=== PATIENT | male | born 1940 | race Caucasian/White ===

== ENCOUNTER 2016-06-06 10:07 | Inpatient (IN) | payer MEDICARE, MEDICAID ==
[~2016-06-06] VITALS: Ht 167.6 cm; Wt 61.7 kg
[~2016-06-06 10:07] MED LIST: BENA40TA3 PO; DOCU250C69 PO; NEPVIT PO; SEVE800T8 PO
[2016-06-06] MEDS ORDERED: NITROGLYCERIN 0.4MG TABLET SL SL PRN (10:30)
[2016-06-06] MEDS ORDERED: ASPIRIN 81MG TABLET PO ONE (10:30)
[2016-06-06 10:34] LABS: BASOPHILS % 1.6 % (0.0-2.0); EOSINOPHILS % 11.4 % (0.0-5.0); HEMATOCRIT. 32.6 % (42.0-52.0); HEMOGLOBIN. 10.9 g/dL (14.0-18.0); LYMPHOCYTES % 25.2 % (20.0-50.0); MEAN CORPUSCULAR HEMOGLOBIN 31.3 pg (28.0-32.0); MEAN CORPUSCULAR HGB CONC 33.4 g/dL (31.0-37.0); MEAN CORPUSCULAR VOLUME 93.7 fL (80.0-94.0); MEAN PLATELET VOLUME 8.3 fl (7.4-10.4); MONOCYTES % 10.7 % (2.0-8.0); NEUTROPHILS % 51.1 % (40.0-76.0); PLATELET 203 x1000/uL (130-400); RED BLOOD CELL COUNT 3.48 mill/uL (4.7-6.1); RED CELL DISTRIBUTION WIDTH 15.1 % (11.6-14.6); WHITE BLOOD COUNT 7.1 x1000/uL (4.5-11.0)
[2016-06-06 10:42] LABS: INR 1.1; PROTHROMBIN TIME 11.5 sec
[2016-06-06 10:49] LABS: ALANINE AMINOTRANSFERASE 28 IU/L (13-61); ALBUMIN 3.6 g/dL (3.4-5.0); ANION GAP 17; CALCIUM 8.5 mg/dL (8.5-10.1); CARBON DIOXIDE 30 mEq/L (21-32); CHLORIDE 97 mEq/L (98-107); INDEX HEMOLYSI 1 (1-3); INDEX ICTERIC 1 (1-4); INDEX LIPEMIC 1 (1-3); UREA NITROGEN BLOOD 41 mg/dL (7-21); eGFR 7 mL/min (>60)
[2016-06-06 10:53] LABS: TROPONIN I 0.11 ng/mL (0.00-0.04)
[2016-06-06 11:04] LABS: NT PRO B-TYPE NATRIURETIC PEP 56291 pg/mL (5-125)
[2016-06-06] MEDS ORDERED: ACETAMINOPHEN 325MG TABLET PO ONE ×2 (13:00)
[2016-06-06 15:03] VITALS: BP 133/62
[2016-06-06 15:06] VITALS: BP 133/62
[2016-06-06] MEDS ORDERED: CLONIDINE 0.2MG TABLET PO PRN (15:30)
[2016-06-06] MEDS ORDERED: HYDRALAZINE 20MG/ML VIAL IV PRN (15:30)
[2016-06-06] MEDS ORDERED: BENAZEPRIL 20MG TABLET PO SCH (15:30)
[2016-06-06] MEDS ORDERED: CLONIDINE 0.1MG TABLET PO PRN (15:30)
[2016-06-06] MEDS ORDERED: REGADENOSON 0.4 MG/5 ML IV NR (16:45)
[2016-06-06 17:21] LABS: CALCIUM 8.7 mg/dL (8.5-10.1)
[2016-06-06] MEDS: ENOXAPARIN 30MG/0.3ML SYR SUBCUT SCH (18:34)
[2016-06-06 20:00] VITALS: BP 135/56
[2016-06-06] MEDS ORDERED: PREGABALIN 25MG CAPSULE PO SCH (21:00)
[2016-06-06] MEDS: HYDROCODONE/ACETAMINOPHEN 5/325MG TABLET PO PRN (22:56)
[2016-06-07] VITALS: BP 121/57
[2016-06-07] MEDS: DULOXETINE HCL 20MG DR CAPSULE PO SCH ×2 (00:41→20:50)
[2016-06-07] MEDS: CARVEDILOL 3.125 MG TABLET PO SCH ×3 (00:41→20:50)
[2016-06-07 04:00] VITALS: BP 133/70
[2016-06-07 06:22] LABS: BASOPHILS % 1.4 % (0.0-2.0); EOSINOPHILS % 14.6 % (0.0-5.0); HEMATOCRIT. 33.7 % (42.0-52.0); HEMOGLOBIN. 11.2 g/dL (14.0-18.0); MEAN CORPUSCULAR HEMOGLOBIN 30.7 pg (28.0-32.0); MEAN CORPUSCULAR HGB CONC 33.1 g/dL (31.0-37.0); MEAN CORPUSCULAR VOLUME 92.6 fL (80.0-94.0); MEAN PLATELET VOLUME 8.1 fl (7.4-10.4); MONOCYTES % 11.7 % (2.0-8.0); NEUTROPHILS % 55.3 % (40.0-76.0); PLATELET 204 x1000/uL (130-400); RED BLOOD CELL COUNT 3.64 mill/uL (4.7-6.1); RED CELL DISTRIBUTION WIDTH 15.1 % (11.6-14.6); WHITE BLOOD COUNT 6.3 x1000/uL (4.5-11.0)
[2016-06-07 07:04] LABS: CREATINE KINASE MB FRACTION 5.6 ng/mL (0.5-3.6); MAGNESIUM 2.6 mg/dL (1.8-2.4); PHOSPHORUS 3.8 mg/dL (2.5-4.9); T4 FREE 1.09 ng/dL (0.76-1.46)
[2016-06-07 07:09] LABS: THYROID STIMULATING HORMONE 1.6 uIU/mL (0.36-3.74); TROPONIN I 0.11 ng/mL (0.00-0.04)
[2016-06-07 08:00] VITALS: BP_SYST 161; BP_SYST 165; BP_DIAS 101; BP_DIAS 69
[2016-06-07] MEDS: LOSARTAN POTASSIUM 100 MG TABLET PO SCH (08:36)
[2016-06-07] MEDS: NIFEDIPINE XL 60MG TAB PO SCH (08:36)
[2016-06-07 08:58] LABS: CALCIUM 8.9 mg/dL (8.5-10.1)
[2016-06-07] MEDS ORDERED: REGADENOSON 0.4 MG/5 ML IV ONE (09:14)
[2016-06-07] MEDS: FOLIC ACID/VITAMIN B COMP W-C TABLET PO SCH (10:53)
[2016-06-07] MEDS: ONDANSETRON HCL 4MG/2ML VIAL IV PRN (10:53)
[2016-06-07] MEDS: LACTULOSE 20G/30ML UDC PO PRN (10:53)
[2016-06-07] MEDS: ASPIRIN 81MG EC TABLET PO SCH (10:54)
[2016-06-07] MEDS ORDERED: CLONIDINE 0.1MG TABLET PO PRN (11:00)
[2016-06-07 12:00] VITALS: BP 108/42
[2016-06-07 16:00] VITALS: BP 121/58
[2016-06-07] MEDS: ENOXAPARIN 30MG/0.3ML SYR SUBCUT SCH (18:13)
[2016-06-07] MEDS ORDERED: CARV3.1242 PO (18:53)
[2016-06-07] MEDS ORDERED: NIFE60TA64 PO (18:53)
[2016-06-07] MEDS ORDERED: MINO2.5T19 PO (18:53)
[2016-06-07] MEDS ORDERED: HYDR-4134 PO (18:53)
[2016-06-07] MEDS ORDERED: AMLO10TA80 PO (18:53)
[2016-06-07] MEDS ORDERED: GABA-531 PO (18:53)
[2016-06-07 20:00] VITALS: BP 126/56
[2016-06-07] MEDS: HYDROCODONE/ACETAMINOPHEN 5/325MG TABLET PO PRN (22:56)
[2016-06-08] VITALS: BP 122/58
[2016-06-08] MEDS: ONDANSETRON HCL 4MG/2ML VIAL IV PRN (01:10)
[2016-06-08 04:00] VITALS: BP 127/51
[2016-06-08] MEDS: LACTULOSE 20G/30ML UDC PO PRN (05:53)
[2016-06-08 05:58] LABS: PHOSPHORUS 6.5 mg/dL (2.5-4.9)
[2016-06-08 06:30] LABS: BASOPHILS % 1.4 % (0.0-2.0); EOSINOPHILS % 4.3 % (0.0-5.0); HEMATOCRIT. 33.5 % (42.0-52.0); HEMOGLOBIN. 11.1 g/dL (14.0-18.0); LYMPHOCYTES % 21.1 % (20.0-50.0); MEAN CORPUSCULAR HEMOGLOBIN 31.3 pg (28.0-32.0); MEAN CORPUSCULAR VOLUME 94.7 fL (80.0-94.0); MEAN PLATELET VOLUME 8.3 fl (7.4-10.4); MONOCYTES % 11.1 % (2.0-8.0); NEUTROPHILS % 62.1 % (40.0-76.0); PLATELET 197 x1000/uL (130-400); RED BLOOD CELL COUNT 3.54 mill/uL (4.7-6.1); RED CELL DISTRIBUTION WIDTH 15.3 % (11.6-14.6)
[2016-06-08 08:00] VITALS: BP 159/71
[2016-06-08] MEDS: LOSARTAN POTASSIUM 100 MG TABLET PO SCH (09:00)
[2016-06-08] MEDS: CARVEDILOL 3.125 MG TABLET PO SCH ×2 (09:00→21:14)
[2016-06-08] MEDS: NIFEDIPINE XL 60MG TAB PO SCH (09:00)
[2016-06-08] MEDS: FOLIC ACID/VITAMIN B COMP W-C TABLET PO SCH (10:31)
[2016-06-08] MEDS: ASPIRIN 81MG EC TABLET PO SCH (10:31)
[2016-06-08 12:00] VITALS: BP 137/63
[2016-06-08 16:00] VITALS: BP 112/50
[2016-06-08] MEDS: ENOXAPARIN 30MG/0.3ML SYR SUBCUT SCH ×2 (16:50→16:56)
[2016-06-08] MEDS: ACETAMINOPHEN 325MG TABLET PO PRN ×2 (16:50→22:38)
[2016-06-08 20:00] VITALS: BP 116/51
[2016-06-08] MEDS: DULOXETINE HCL 20MG DR CAPSULE PO SCH (21:13)
[2016-06-09] VITALS: BP 123/70
[2016-06-09] MEDS: LACTULOSE 20G/30ML UDC PO PRN (01:20)
[2016-06-09] MEDS: ACETAMINOPHEN 325MG TABLET PO PRN (03:05)
[2016-06-09] MEDS: ONDANSETRON HCL 4MG/2ML VIAL IV PRN ×2 (03:23→09:32)
[2016-06-09 04:00] VITALS: BP 160/74
[2016-06-09 08:00] VITALS: BP 176/101
[2016-06-09] MEDS: LOSARTAN POTASSIUM 100 MG TABLET PO SCH (08:29)
[2016-06-09] MEDS: CARVEDILOL 3.125 MG TABLET PO SCH ×2 (08:30→22:30)
[2016-06-09] MEDS: ASPIRIN 81MG EC TABLET PO SCH (08:30)
[2016-06-09] MEDS: FOLIC ACID/VITAMIN B COMP W-C TABLET PO SCH (08:31)
[2016-06-09] MEDS: NIFEDIPINE XL 60MG TAB PO SCH (08:31)
[2016-06-09 12:00] VITALS: BP 117/58
[2016-06-09] MEDS: HYDROCODONE/ACETAMINOPHEN 5/325MG TABLET PO PRN (13:42)
[2016-06-09] MEDS ORDERED: BISACODYL 10MG SUPP PR SCH (14:00)
[2016-06-09 16:00] VITALS: BP 135/56
[2016-06-09] MEDS: ENOXAPARIN 30MG/0.3ML SYR SUBCUT SCH (16:19)
[2016-06-09] MEDS: LACTULOSE 20G/30ML UDC PO SCH (16:19)
[2016-06-09 20:00] VITALS: BP 151/73
[2016-06-09] MEDS: DULOXETINE HCL 20MG DR CAPSULE PO SCH (22:30)
[2016-06-10] VITALS: BP 127/58
[2016-06-10 04:00] VITALS: BP 103/45
[2016-06-10 05:39] LABS: EOSINOPHILS % 2.4 % (0.0-5.0); HEMATOCRIT. 34.6 % (42.0-52.0); HEMOGLOBIN. 11.3 g/dL (14.0-18.0); LYMPHOCYTES % 18.3 % (20.0-50.0); MEAN CORPUSCULAR HEMOGLOBIN 30.9 pg (28.0-32.0); MEAN CORPUSCULAR HGB CONC 32.8 g/dL (31.0-37.0); MEAN CORPUSCULAR VOLUME 94.4 fL (80.0-94.0); MEAN PLATELET VOLUME 8.6 fl (7.4-10.4); MONOCYTES % 10.2 % (2.0-8.0); NEUTROPHILS % 68.1 % (40.0-76.0); PLATELET 173 x1000/uL (130-400); RED BLOOD CELL COUNT 3.66 mill/uL (4.7-6.1); RED CELL DISTRIBUTION WIDTH 15.5 % (11.6-14.6); WHITE BLOOD COUNT 8.3 x1000/uL (4.5-11.0)
[2016-06-10 06:21] LABS: CALCIUM 8.7 mg/dL (8.5-10.1); MAGNESIUM 2.6 mg/dL (1.8-2.4); PHOSPHORUS 6.2 mg/dL (2.5-4.9)
[2016-06-10 08:00] VITALS: BP 141/63
[2016-06-10] MEDS: LACTULOSE 20G/30ML UDC PO SCH ×2 (09:00→16:59)
[2016-06-10] MEDS: LOSARTAN POTASSIUM 100 MG TABLET PO SCH (09:06)
[2016-06-10] MEDS: CARVEDILOL 3.125 MG TABLET PO SCH ×2 (09:07→21:05)
[2016-06-10] MEDS: ASPIRIN 81MG EC TABLET PO SCH (09:07)
[2016-06-10] MEDS: NIFEDIPINE XL 60MG TAB PO SCH (09:07)
[2016-06-10] MEDS: FOLIC ACID/VITAMIN B COMP W-C TABLET PO SCH (09:07)
[2016-06-10 12:00] VITALS: BP 152/69
[2016-06-10] MEDS: ENOXAPARIN 30MG/0.3ML SYR SUBCUT SCH (16:00)
[2016-06-10 17:03] VITALS: BP_SYST 147; BP_SYST 150; BP_DIAS 71; BP_DIAS 83
[2016-06-10 20:00] VITALS: BP 146/75
[2016-06-10] MEDS: DULOXETINE HCL 20MG DR CAPSULE PO SCH (21:03)
[2016-06-11] VITALS (7 sets, daily range): BP systolic 96–153; BP diastolic 56–87
[2016-06-11 07:16] LABS: BASOPHILS % 1.1 % (0.0-2.0); EOSINOPHILS % 4.1 % (0.0-5.0); HEMATOCRIT. 35.9 % (42.0-52.0); HEMOGLOBIN. 11.6 g/dL (14.0-18.0); LYMPHOCYTES % 20.9 % (20.0-50.0); MEAN CORPUSCULAR HEMOGLOBIN 30.5 pg (28.0-32.0); MEAN CORPUSCULAR HGB CONC 32.5 g/dL (31.0-37.0); MEAN PLATELET VOLUME 8.7 fl (7.4-10.4); NEUTROPHILS % 62.9 % (40.0-76.0); PLATELET 166 x1000/uL (130-400); RED BLOOD CELL COUNT 3.82 mill/uL (4.7-6.1); RED CELL DISTRIBUTION WIDTH 15.5 % (11.6-14.6); WHITE BLOOD COUNT 7.7 x1000/uL (4.5-11.0)
[2016-06-11 07:56] LABS: CALCIUM 8.4 mg/dL (8.5-10.1); MAGNESIUM 2.7 mg/dL (1.8-2.4); PHOSPHORUS 7.1 mg/dL (2.5-4.9)
[2016-06-11] MEDS: LACTULOSE 20G/30ML UDC PO SCH ×2 (09:08→17:00)
[2016-06-11] MEDS: LOSARTAN POTASSIUM 100 MG TABLET PO SCH (09:09)
[2016-06-11] MEDS: ASPIRIN 81MG EC TABLET PO SCH (09:09)
[2016-06-11] MEDS: FOLIC ACID/VITAMIN B COMP W-C TABLET PO SCH (09:09)
[2016-06-11] MEDS: NIFEDIPINE XL 60MG TAB PO SCH (09:10)
[2016-06-11] MEDS: CARVEDILOL 3.125 MG TABLET PO SCH ×2 (09:11→21:13)
[2016-06-11] MEDS ORDERED: LACTULOSE 20G/30ML UDC PO NR (10:45)
[2016-06-11] MEDS: SEVELAMER CARBONATE 800 MG TABLET PO SCH ×2 (13:53→18:40)
[2016-06-11] MEDS: ENOXAPARIN 30MG/0.3ML SYR SUBCUT SCH (18:40)
[2016-06-11] MEDS: DULOXETINE HCL 20MG DR CAPSULE PO SCH (21:12)
[2016-06-12] MEDS: ACETAMINOPHEN 325MG TABLET PO PRN (01:23)
[2016-06-12 04:00] VITALS: BP 163/82
[2016-06-12 06:05] LABS: EOSINOPHILS % 6.4 % (0.0-5.0); HEMATOCRIT. 34.8 % (42.0-52.0); HEMOGLOBIN. 11.5 g/dL (14.0-18.0); LYMPHOCYTES % 21.1 % (20.0-50.0); MEAN CORPUSCULAR HGB CONC 33.2 g/dL (31.0-37.0); MEAN CORPUSCULAR VOLUME 93.3 fL (80.0-94.0); MEAN PLATELET VOLUME 8.9 fl (7.4-10.4); MONOCYTES % 11.3 % (2.0-8.0); NEUTROPHILS % 60.2 % (40.0-76.0); PLATELET 153 x1000/uL (130-400); RED BLOOD CELL COUNT 3.72 mill/uL (4.7-6.1); RED CELL DISTRIBUTION WIDTH 15.1 % (11.6-14.6); WHITE BLOOD COUNT 6.3 x1000/uL (4.5-11.0)
[2016-06-12 06:10] LABS: CALCIUM 8.3 mg/dL (8.5-10.1); MAGNESIUM 2.4 mg/dL (1.8-2.4); PHOSPHORUS 3.7 mg/dL (2.5-4.9)
[2016-06-12 08:00] VITALS: BP 179/92
[2016-06-12] MEDS: SEVELAMER CARBONATE 800 MG TABLET PO SCH (09:04)
[2016-06-12] MEDS: LACTULOSE 20G/30ML UDC PO SCH (09:04)
[2016-06-12] MEDS: FOLIC ACID/VITAMIN B COMP W-C TABLET PO SCH (09:04)
[2016-06-12] MEDS: ASPIRIN 81MG EC TABLET PO SCH (09:04)
[2016-06-12] MEDS: NIFEDIPINE XL 60MG TAB PO SCH (09:05)
[2016-06-12] MEDS: CARVEDILOL 3.125 MG TABLET PO SCH (09:05)
[2016-06-12] MEDS: LOSARTAN POTASSIUM 100 MG TABLET PO SCH (09:05)
[2016-06-12 12:00] VITALS: BP 154/85
== END 2016-06-12 12:26 | DRG 291 ==
LOC: ER 10:21 → OBSVTOIN 11:32 → INTOOBSV 11:32 → 7WST 11:32
PROVIDERS: ADMIT Internal Medicine; ATTEND Internal Medicine
PROC: 5A1D60Z (ICD-10-PCS; principal; 2016-06-06)
DX: I13.2 Hypertensive heart and chronic kidney disease with heart failure and with stage 5 chronic kidney disease, or end stage renal disease (principal); N18.6 End stage renal disease; J84.9 Interstitial pulmonary disease, unspecified; I50.30 Unspecified diastolic (congestive) heart failure; B69.0 Cysticercosis of central nervous system; R07.89 Other chest pain; I25.110 Atherosclerotic heart disease of native coronary artery with unstable angina pectoris; I07.1 Rheumatic tricuspid insufficiency; M48.06 Spinal stenosis, lumbar region; E83.39 Other disorders of phosphorus metabolism; E11.42 Type 2 diabetes mellitus with diabetic polyneuropathy; D64.9 Anemia, unspecified; E11.22 Type 2 diabetes mellitus with diabetic chronic kidney disease; E78.00 Pure hypercholesterolemia, unspecified; F32.9 Major depressive disorder, single episode, unspecified; E11.40 Type 2 diabetes mellitus with diabetic neuropathy, unspecified; K59.00 Constipation, unspecified; I27.2 Other secondary pulmonary hypertension; Z79.82 Long term (current) use of aspirin; Z83.3 Family history of diabetes mellitus; Z86.010 Personal history of colon polyps; Z99.2 Dependence on renal dialysis; Z88.8 Allergy status to other drugs, medicaments and biological substances; Z91.013 Allergy to seafood; Z79.899 Other long term (current) drug therapy
CPT/HCPCS: 36415; 71010; 74000; 78452; 80048; 80053; 80061; 82550; 82553; 83735; 83880; 84100; 84439; 84443; 84484; 85025; 85379; 85610; 93005; 93017; 97162; 99285; A6261; A9500; J1650; J2405; J2785; J7030